=== PATIENT | female | born 1955 | race African-American/Black ===

== ENCOUNTER → 2019-10-15 | Day surgery (SDC) | payer OTHER ==
--- NOTE | 2019-10-18 18:14 | PATH ---
Surgical Pathology Report Patient Name: YUDY HANLEY [facility]. Rec. #: [id number] /Age/Gender: 1955 (Age: 63) / F Account: [id number] Location: [facility] Taken: 10/15/2019 Received: 10/15/2019 Reported: 10/18/2019 Physicians: Rubin Gonzalez M.D. Specimen(s) Received A: LEFT 8:00 O'CLOCK 8FN B: RIGHT 10:00 O'CLOCK 4FN Clinical History Ultrasound findings: Probably benign Final Diagnosis A. LEFT BREAST 8:00, 8 CM FN, CORE BIOPSY: BENIGN BREAST TISSUE WITH PAPILLARY AND CYSTIC APOCRINE METAPLASIA. B. RIGHT BREAST 10:00, 4 CM FN, CORE BIOPSY: BREAST TISSUE WITH INTRADUCTAL PAPILLOMA, APOCRINE METAPLASIA, MICROCYST, AND STROMAL FIBROSIS. Electronically Signed Conrad Pagan M.D. Gross Description A. Received in formalin labeled "left breast 8:00, 8 cmfn," is a 1.8 cm in length x 0.2 cm in diameter duran-yellow, cylindrical portion of fibroadipose tissue admixed with blood clot. The specimen is submitted in toto in one cassette. B. Received in formalin labeled "right breast 10:00, 4 cmfn," is a 1.7 x 1.0 x 0.2 cm aggregate of multiple duran-yellow, irregular to cylindrical portions of fibroadipose tissue. The formalin is filtered and the specimen is entirely submitted in one cassette. Time to formalin fixation: 2 minutes Total formalin fixation time: Approximately 6 hours. /10/15/2019 saudi/10/15/2019
== END | disposition home or self-care (01) ==
LOC: FRADUS-SUR 12:48
PROVIDERS: ATTEND Surgery Surgical Oncology
PROC: 0HBV3ZX Excision of Bilateral Breast, Percutaneous Approach, Diagnostic (ICD-10-PCS; principal; 2019-10-15)
DX: D24.1 Benign neoplasm of right breast (principal); N60.11 Diffuse cystic mastopathy of right breast; N60.31 Fibrosclerosis of right breast; N60.12 Diffuse cystic mastopathy of left breast; N64.89 Other specified disorders of breast; N63.11 Unspecified lump in the right breast, upper outer quadrant; N63.24 Unspecified lump in the left breast, lower inner quadrant
CPT/HCPCS: 19083; 77066-TC; 87899; 88305-TC; A4648